=== PATIENT | female | born 1995 | race Caucasian/White ===

== ENCOUNTER 2016-10-19 14:15 | Emergency (ER) | payer MEDICAID ==
[2016-10-19 14:45] VITALS: BP 124/88
[2016-10-19] MEDS ORDERED: Sodium Chloride 0.9% 10 ML Syringe FLUSH PRN (15:05)
--- NOTE | 2016-10-19 15:08 | EDM.PDOC ---
ED HPI GENERAL MEDICAL PROBLEM - General Chief Complaint: Abdominal Pain Stated Complaint: Epigastric pain Time Seen by Provider: 10/19/16 14:40 Source of Information: Reports: Patient, RN Notes Reviewed History Limitations: Reports: No Limitations - History of Present Illness INITIAL COMMENTS - FREE TEXT/NARRATIVE: 21 year old female presents to the ED with complaints of intermittent epigastric pain for the past few months. Symptoms started after she had her baby in May. The symptoms seemed to start after dairy products so she stopped drinking milk. This helped for a while. Last night she developed the pain and associated nausea, vomiting, chills, and bloating. She says her stools "haven't been right" since the delivery of her baby. She describes frequent, small bowel movements. She denies fever, body aches. She denies urinary symptoms. She denies any complications with her delivery. No appendectomy or cholecystectomy. No chest pain or shortness of breath. Her pain resolved about 15 minutes prior to arrival. Upper Abdomen Pain Score (Numeric/FACES): 9 - Related Data Allergies Allergy/AdvReac Type Severity Reaction Status Date / Time No Known Allergies Allergy Verified 10/19/16 14:23 Home Meds: Home Meds Hyoscyamine Sulfate [Levsin-Sl] 0.125 mg SL Q4H PRN #20 tab.subl 10/19/16 [Rx] Ondansetron [Zofran] 4 mg PO Q6H #20 tab 10/19/16 [Rx] Sulfamethoxazole/Trimethoprim [Bactrim Ds Tablet] 1 each PO BID #20 tablet 10/19 [Rx] oxyCODONE HCl/Acetaminophen [Oxycodone-Acetaminophen 5-325] 1 each PO Q4H PRN # 20 tablet 10/19/16 [Rx] Past Medical History [employer] History: Reports: Social & Family History - Family History Family Medical History: Noncontributory - Tobacco Use Smoking Status *Q: Never Smoker - Caffeine Use Caffeine Use: Reports: Coffee - Recreational Drug Use Recreational Drug Use: No ED ROS GENERAL - Review of Systems Review Of Systems: See Below Constitutional: Reports: Chills Respiratory: Reports: No Symptoms. Denies: Shortness of Breath Cardiovascular: Reports: No Symptoms. Denies: Chest Pain GI/Abdominal: Reports: Abdominal Pain, Nausea, Vomiting. Denies: Constipation, Diarrhea : Reports: No Symptoms. Denies: Dysuria, Flank Pain, Frequency ED EXAM, GI/ABD - Physical Exam Exam: See Below Exam Limited By: No Limitations General Appearance: Alert, WD/WN, No Apparent Distress Respiratory/Chest: No Respiratory Distress, Lungs Clear, Normal Breath Sounds Cardiovascular: Regular Rate, Rhythm GI/Abdominal Exam: Normal Bowel Sounds, Soft, No Distention, Other (mild tenderness over epigastric region. Negative wolf's sign. no peritoneal signs.) Neurological: Alert, Normal Cognition Course - Vital Signs Last Recorded V/S: Last Vital Signs Temp 98.4 F 10/19/16 14:20 Pulse 59 L 10/19/16 14:20 Resp 20 10/19/16 14:20 BP 124/88 10/19/16 14:20 Pulse Ox 99 10/19/16 14:20 - Orders/Labs/Meds Orders: Active Orders 24 hr Category Date Time Status Peripheral IV Care [RC] . DIRECTED Care 10/19/16 15:08 Active Peripheral IV Insertion Adult [OM.PC] Stat Oth 10/19/16 15:07 Ordered Labs: Laboratory Tests 10/19/16 10/19/16 10/19/16 Range/Units 15:30 15:30 16:30 WBC 6.40 (3.98-10.04) K/mm3 RBC 5.12 (3.98-5.22) M/mm3 Hgb 14.5 (11.2-15.7) gm/L Hct 42.4 (34.1-44.9) % MCV 82.8 (79.4-94.8) fl MCH 28.3 (25.6-32.2) pg MCHC 34.2 (32.2-35.5) g/dl RDW Std Deviation 38.8 (36.4-46.3) fL Plt Count 238 (182-369) K/mm3 MPV 11.4 (9.4-12.3) fl Neut % (Auto) 68.8 (34.0-71.1) % Lymph % (Auto) 21.6 (19.3-51.7) % Thurston % (Auto) 9.1 (4.7-12.5) % Eos % (Auto) 0.3 L (0.7-5.8) Baso % (Auto) 0.2 (0.1-1.2) % Neut # (Auto) 4.41 (1.56-6.13) K/mm3 Lymph # (Auto) 1.38 (1.18-3.74) K/mm3 Thurston # (Auto) 0.58 H (0.24-0.36) K/mm3 Eos # (Auto) 0.02 L (0.04-0.36) K/mm3 Baso # (Auto) 0.01 (0.01-0.08) K/mm3 Sodium 140 (136-145) mEq/L Potassium 3.4 L (3.5-5.1) mEq/L Chloride 107 (98-107) mEq/L Carbon Dioxide 22 (21-32) mEq/L Anion Gap 14.4 (5-15) BUN 10 (7-18) mg/dL Creatinine 0.8 (0.55-1.02) mg/dL Est Cr Clr Drug Dosing 88.72 mL/min Estimated GFR (MDRD) > 60 (>60) mL/min BUN/Creatinine Ratio 12.5 L (14-18) Glucose 102 (74-106) mg/dL Calcium 8.8 (8.5-10.1) mg/dL Total Bilirubin 4.1 H (0.2-1.0) mg/dL AST 882 H (15-37) U/L ALT 930 H (14-59) U/L Alkaline Phosphatase 203 H (46-116) U/L Total Protein 7.6 (6.4-8.2) g/dl Albumin 4.1 (3.4-5.0) g/dl Globulin 3.5 gm/dL Albumin/Globulin Ratio 1.2 (1-2) Lipase 157 (73-393) U/L Urine HCG, Qual Negative (NEGATIVE) Meds: Medications Discontinued Medications Generic Name Dose Route Start Last Admin Trade Name Freq PRN Reason Stop Dose Admin Sodium Chloride 10 ml 10/19/16 15:05 Saline Flush FLUSH ASDIRECTED PRN Keep Vein Open - Re-Assessments/Exams Free Text/Narrative Re-Assessment/Exam: CBC is normal. CMP reveals bilirubin of 4.1, AST 882, ALT 930, alk phos 203. Lipase is normal. Hcg is negative. Gallbladder ultrasound Impression: 1. Multiple gallstones. Gallbladder wall is also mildly thickened. No biliary duct dilatation is seen. 2. No additional abnormality is identified on right upper quadrant abdominal ultrasound. The patient has been asymptomatic throughout her ER stay. Her Ultrasound reveals gallstones but no biliary duct dilatation, however her labs are concerning for biliary obstruction. Called and discussed results with Dr. Hyde. He recommends Bactrim DS prophylactically, setting patient up for outpatient MRCP then having her f/u with PCP. Patient was notified of findings. Will start her on Bactrim Ds as recommended by Dr. Hyde. Provided prescriptions for Levsin, Percocet and Zofran for symptomatic treatment. Instructed to return to the ED if she develops high fever or worsening pain. Discharge instructions as documented. Departure - Departure Time of Disposition: 17:34 Disposition: Home, Self-Care 01 Condition: Good Clinical Impression: Gallstones, Elevated transaminase level, Elevated bilirubin - Discharge Information Prescriptions: Hyoscyamine Sulfate [Levsin-Sl] 0.125 mg SL Q4H PRN #20 tab.subl PRN Reason: Abdominal Pain Ondansetron [Zofran] 4 mg PO Q6H #20 tab Sulfamethoxazole/Trimethoprim [Bactrim Ds Tablet] 1 each PO BID #20 tablet oxyCODONE HCl/Acetaminophen [Oxycodone-Acetaminophen 5-325] 1 each PO Q4H PRN # 20 tablet PRN Reason: Pain Instructions: Cholelithiasis, [id number] Referrals: Arben,BECKI Zhao [Primary Care Provider] - Forms: ED Department Discharge Additional Instructions: Follow-up with Peggy Theodore early next week MRCP is scheduled for 10/31/16 at 8am. Arrival 30 minutes prior to your appointment time Avoid high fat foods, dairy products. Levsin 0.125mg under your tongue for abdominal pain If that doesn't work, try Percocet 1 tab every 4 hours as needed Zofran 4mg every 6 hours as needed for nausea Bactrim DS 1 tab twice a day for 10 days Return to ER with fever or if your symptoms worsen. - My Orders Last 24 Hours: My Active Orders 10/19/16 15:07 Peripheral IV Insertion Adult [OM.PC] Stat 10/19/16 15:08 Peripheral IV Care [RC] . DIRECTED - Assessment/Plan Last 24 Hours: My Active Orders 10/19/16 15:07 Peripheral IV Insertion Adult [OM.PC] Stat 10/19/16 15:08 Peripheral IV Care [RC] . DIRECTED
--- NOTE | 2016-10-19 16:56 | US ---
Limited abdominal ultrasound: Multiple real-time images of the upper right abdomen were obtained. Comparison: No previous study. Liver shows no focal abnormality. Inferior vena cava is patent. Multiple gallstones are seen within the gallbladder. Gallbladder wall is mildly prominent. No biliary duct dilatation is seen. Pancreas appears within normal limits. Right kidney shows no hydronephrosis or mass. Right kidney measures 9.3 cm in length. Impression: 1. Multiple gallstones. Gallbladder wall is also mildly thickened. No biliary duct dilatation is seen. 2. No additional abnormality is identified on right upper quadrant abdominal ultrasound. Diagnostic code #3
== END 2016-10-19 17:23 | disposition home or self-care (01) ==
LOC: JD.ED 14:15
DX: K80.20 Calculus of gallbladder without cholecystitis without obstruction (principal); R17 Unspecified jaundice; R74.0 Nonspecific elevation of levels of transaminase and lactic acid dehydrogenase [LDH]
CPT/HCPCS: 36415; 76705; 76705-26; 80053; 81025; 83690; 85025; 99283; 99284-25